=== PATIENT | male | born 1950 | race Caucasian/White ===

== ENCOUNTER 2017-02-11 19:45 | Emergency (ER) | payer OTHER ==
[~2017-02-11] VITALS: Ht 180.3 cm; Wt 108.9 kg
[~2017-02-11 19:45] MED LIST: ASPI81CT89 PO; CALC500C17 PO; GLIP10TE PO; LISI-420 PO; METF1000 PO; PIOG15TA2 PO; SERT100T PO; SIMV40TA1 PO
--- NOTE | 2017-02-11 19:45 | NUR ---
Patient was BIBA at this time.
[2017-02-11 19:48] VITALS: BP 135/73
[2017-02-11] MEDS ORDERED: ACETAMINOPHEN 325 MG TAB ONE (19:59)
--- NOTE | 2017-02-11 20:04 | NUR ---
Dr. Kan evaluating patient.
[2017-02-11] MEDS ORDERED: KETOROLAC 60 MG/2 ML VIAL IM ONE (20:10)
--- NOTE | 2017-02-11 20:21 | NUR ---
67Y/M PT. BIBA TO ED WITH C/O HEADACHE X 2 DAYS. PT. STATES HAVING HEADACHE X2 DAYS, TOOK ASPIRIN BEFORE ARRIVED. HX. HTN, PTSD, DM. AAO X4, AMBULATORY WITH STEADY GAIT. RESPIRATORY EVEN AND UNLABORED. SKIN WARM AND DRY. C/O HEADACHE 5/10, VS T100.3, TYLENOL GIVEN PER PROTOCOL, ER MADE AWRE OF PT. STATUS.
--- NOTE | 2017-02-11 20:39 | NUR ---
Patient discharged with v/s stable. Written and verbal after care instructions given and explained. Patient alert, oriented and verbalized understanding of instructions. Ambulatory with steady gait. All questions addressed prior to discharge. ID band removed. Patient advised to follow up with PMD. Rx of AUGMENTIN 875 MG, NAPROSYN 500 MG given. Patient educated on indication of medication including possible reaction and side effects. Opportunity to ask questions provided and answered.
[2017-02-11 20:59] VITALS: BP 121/67
== END 2017-02-11 20:39 | disposition home or self-care (01) ==
LOC: MED 19:45
DX: J32.1 Chronic frontal sinusitis (principal); E11.9 Type 2 diabetes mellitus without complications; I10 Essential (primary) hypertension; F43.10 Post-traumatic stress disorder, unspecified
CPT/HCPCS: 82948; 96372; 99283; J1885

== ENCOUNTER 2023-02-02 09:28 | Emergency (ER) | payer OTHER ==
[~2023-02-02] VITALS: Ht 180.3 cm; Wt 111.1 kg
[~2023-02-02 09:28] MED LIST changes: +ASPI-1822 PO; -ASPI81CT89 PO; -LISI-420 PO; +LISI-487 PO; +METF-1274 PO; -METF1000 PO; +PIOG-4 PO; -PIOG15TA2 PO; +SIMV-373 PO; -SIMV40TA1 PO
[2023-02-02 09:47] VITALS: BP 147/67; PULSE 90; RESP 18; TEMP 98; O2SAT 99
--- NOTE | 2023-02-02 10:15 | NUR ---
PT AMB TO BED
--- NOTE | 2023-02-02 11:38 | NUR ---
PT WHEELED TO CT SCAN
[2023-02-02] MEDS ORDERED: AMOX1TAB8 PO (12:35)
--- NOTE | 2023-02-02 12:35 | NUR ---
ANIMAL BITE REPORT FAXED TO [phone]
[2023-02-02 12:41] VITALS: BP 145/63; PULSE 79; RESP 20; TEMP 97.8; O2SAT 98
--- NOTE | 2023-02-02 12:41 | NUR ---
Patient discharged with v/s stable. Written and verbal after care instructions given and explained. Patient alert, oriented and verbalized understanding of instructions. Ambulatory with steady gait. All questions addressed prior to discharge. ID band removed. Patient advised to follow up with PMD. Rx of AMOXICILLIN/POTASSIUM CLAV given. Patient educated on indication of medication including possible reaction and side effects. Opportunity to ask questions provided and answered.
== END 2023-02-02 12:41 | disposition home or self-care (01) ==
LOC: MED 09:28
DX: S61.432A Puncture wound without foreign body of left hand, initial encounter (principal); L03.114 Cellulitis of left upper limb; I10 Essential (primary) hypertension; E11.9 Type 2 diabetes mellitus without complications; Z79.4 Long term (current) use of insulin; Z79.899 Other long term (current) drug therapy; W54.0XXA Bitten by dog, initial encounter; Y93.89 Activity, other specified; Y92.89 Other specified places as the place of occurrence of the external cause; Y99.8 Other external cause status
CPT/HCPCS: 73200; 90471; 90715; 99285

== ENCOUNTER 2023-08-20 07:47 | Emergency (ER) | payer OTHER ==
[~2023-08-20] VITALS: Ht 180.3 cm; Wt 106.6 kg
[~2023-08-20 07:47] MED LIST changes: +AMOX1TAB8 PO
[2023-08-20 07:54] VITALS: BP 149/64; PULSE 104; RESP 18; TEMP 97; O2SAT 97
[2023-08-20] MEDS ORDERED: BACITRACIN OINT 500 UNITS/GM PKT TP ONE (08:05)
[2023-08-20] MEDS ORDERED: BACTO TP (08:06)
[2023-08-20] MEDS ORDERED: CEPH-588 PO (08:06)
[2023-08-20] MEDS ORDERED: FURO-572 PO (08:06)
== END 2023-08-20 08:32 | disposition home or self-care (01) ==
LOC: MED 07:47
DX: S90.822A Blister (nonthermal), left foot, initial encounter (principal); R60.9 Edema, unspecified; I12.9 Hypertensive chronic kidney disease with stage 1 through stage 4 chronic kidney disease, or unspecified chronic kidney disease; E11.22 Type 2 diabetes mellitus with diabetic chronic kidney disease; N18.9 Chronic kidney disease, unspecified; Z79.4 Long term (current) use of insulin; Z79.899 Other long term (current) drug therapy; X58.XXXA Exposure to other specified factors, initial encounter; Y93.89 Activity, other specified; Y92.89 Other specified places as the place of occurrence of the external cause; Y99.8 Other external cause status
CPT/HCPCS: 99283

== ENCOUNTER 2023-09-28 09:35 | Emergency (ER) | payer OTHER ==
[~2023-09-28] VITALS: Ht 180.3 cm; Wt 108.9 kg
[~2023-09-28 09:35] MED LIST changes: +BACTO TP; +CEPH-588 PO; +FURO-572 PO
[2023-09-28 09:55] VITALS: BP 148/77; PULSE 88; RESP 18; TEMP 96.5; O2SAT 99
[2023-09-28 11:34] LABS: BASOPHILS # (AUTO) 0.1 K/uL (0.00-0.22); BASOPHILS % (AUTO) 0.7 % (0.0-2.0); EOSINOPHILS # (AUTO) 0.2 K/uL (0-0.4); EOSINOPHILS % (AUTO) 1.9 % (0.0-4.0); HEMATOCRIT 30.4 % (36-52); HEMOGLOBIN 10.1 g/dL (12.0-18.0); LYMPHOCYTES # (AUTO) 0.5 K/uL (2.0-11.5); MEAN CORPUSCULAR HEMOGLOBIN 30 pg (27-31); MEAN CORPUSCULAR HGB CONC 33 g/dL (33-37); MEAN CORPUSCULAR VOLUME 91.7 fL (80-94); MONOCYTES # (AUTO) 0.5 K/uL (0.8-1.0); MONOCYTES % (AUTO) 5.8 % (1.7-9.3); NEUTROPHILS # (AUTO) 6.8 K/uL (1.8-7.7); NEUTROPHILS % (AUTO) 85.6 % (42.2-75.2); PLATELET COUNT (AUTO) 329 K/uL (140-450); RED BLOOD CELL COUNT(AUTO) 3.31 MIL/uL (4.20-6.10); RED CELL DISTRIBUTION WIDTH 15.5 % (11.6-13.7)
[2023-09-28 11:49] LABS: ANION GAP 12.2 (8-16); CALCIUM 9.5 mg/dL (8.5-10.1); CARBON DIOXIDE 24.8 mmol/L (21-32); CHLORIDE 106 mmol/L (98-107); CREATININE 1.2 mg/dL (0.6-1.3); GLUCOSE 169 mg/dL (74-106); SODIUM SERUM 138 mmol/L (136-145); UREA NITROGEN, BLOOD 26 mg/dL (7-18)
[2023-09-28 11:54] LABS: ALBUMIN 3.3 g/dL (3.4-5.0); BILIRUBIN,DIRECT 0.1 mg/dL (0.0-0.3); TOTAL BILIRUBIN 0.2 mg/dL (0.0-1.0); TOTAL PROTEIN, SERUM 8.3 g/dL (6.4-8.2)
[2023-09-28 11:56] LABS: APPEARANCE,URINE CLEAR (CLEAR); BILIRUBIN,URINE NEGATIVE (NEGATIVE); BLOOD, URINE 3+ (NEGATIVE); COLOR,URINE YELLOW (YELLOW); LEUKOCYTE ESTERASE ,URINE NEGATIVE (NEGATIVE); NITRITE, URINE NEGATIVE (NEGATIVE); PROTEIN,URINE 2+ (NEGATIVE); UGLUCOSE NEGATIVE (NEGATIVE); UROBILINOGEN,URINE 0.2 EU/dL (0.2 - 1)
[2023-09-28 12:28] LABS: BACTERIA,URINE 0-2 /HPF (None Seen); MUCUS,URINE 1+ /LPF (None Seen); RBC,URINE >20 (MANY) /HPF (0-5); RED BLOOD CELL CASTS,URINE 0-10 /LPF (None Seen); SQUAMOUS EPITHELIAL CELL,UR 0-3 (FEW) /LPF (0-3 (FEW))
[2023-09-28 13:56] VITALS: BP 139/64; PULSE 92; RESP 17; TEMP 98; O2SAT 98
== END 2023-09-28 13:56 | disposition home or self-care (01) ==
LOC: MED 09:35
DX: R10.9 Unspecified abdominal pain (principal); I12.9 Hypertensive chronic kidney disease with stage 1 through stage 4 chronic kidney disease, or unspecified chronic kidney disease; E11.22 Type 2 diabetes mellitus with diabetic chronic kidney disease; N28.9 Disorder of kidney and ureter, unspecified; Z79.4 Long term (current) use of insulin; Z79.899 Other long term (current) drug therapy
CPT/HCPCS: 36415; 80048; 80076; 81001; 83690; 85025; 87086; 99284